=== PATIENT | male | born 1945 | race Caucasian/White ===

== ENCOUNTER 2016-12-21 11:08 | Emergency (ER) | payer MEDICARE, BC | END 2016-12-21 14:04 | disposition home or self-care (01) | LOC: ER 11:08 | DX: I63.9 Cerebral infarction, unspecified (principal); F17.210 Nicotine dependence, cigarettes, uncomplicated; Z98.890 Other specified postprocedural states; Z88.8 Allergy status to other drugs, medicaments and biological substances | CPT/HCPCS: 36415; 70551; 73552-RT ==